=== PATIENT | male | born 1970 | race Caucasian/White ===

== ENCOUNTER 2017-12-29 10:09 | Observation (INO) ==
--- NOTE | 2017-12-29 11:07 | ED ---
HPI General Chief Complaint: Dizziness Stated Complaint: difficulty hearing out of rt ear Time Seen by Provider: 12/29/17 10:38 History of Present Illness HPI Narrative: Patient presents to the emergency department complaining of dizziness and decreased hearing in his right ear since Thursday night. States that on Thursday he started vomiting and had difficulty walking around the house. Also reporting some tinnitus and ear pressure. He was seen on Thursday morning at [facility] care and given a Z-Coleman and diagnosed with a ear infection. States that the dizziness worsened and he called him on Thursday and they gave her meclizine. Meclizine reportedly takes the edge off of the nausea but he still having dizziness. States that he is losing his balance and cannot walk or drive whenever he has to turn his head. He denies headache, fever, neck pain, rash, abdominal pain, chest pain, known sick contacts, but reports not being able to hear out of his right ear and vertigo where the room is spinning. patient states he hasn't eaten since yesterday and drank 2 cups of coffee this morning, one with a teaspoon of sugar and another without. Related Data Home Medications Medication Instructions Recorded Confirmed azithromycin [Zithromax Z-Coleman] 250 mg PO DAILY 12/29/17 12/29/17 meclizine 25 mg PO BID PRN 12/29/17 12/29/17 Allergies Allergy/AdvReac Type Severity Reaction Status Date / Time penicillin G Allergy Unknown Swelling Verified 12/29/17 10:27 Review of Systems ROS: all other systems reviewed are negative [facility] Medical History Medical History Patient denies medical problems (Acute) Surgical History Surgical History No history of previous surgery (Acute) Social History Social History Substance History: No History of Abuse Second Hand Smoke Exposure: No Smoking Status: Former smoker Tobacco Type: Cigarettes How Often Do You Have a Drink Containing Alcohol: 2 to 3 times a week Recent Travel in [facility] within the Last 8 Weeks: No Recent Out of Country Travel within the Last 8 Weeks: No Immunization History Tetanus Immunization: Unsure Exam Narrative Exam Narrative: GENERAL: No acute distress. SKIN: Focused skin assessment warm/dry. HEAD: Atraumatic. Normocephalic. EYES: Pupils equal and round. No scleral icterus. No injection or drainage. Intraocular muscles intact bilaterally. ENT: No nasal bleeding or discharge. Mucous membranes pink and moist. NECK: Trachea midline. No JVD. Patient can move his neck but as that increases the vertigo he likes to keep his neck still in midline. CARDIOVASCULAR: Regular rate and rhythm. No murmur appreciated. RESPIRATORY: No accessory muscle use. Clear to auscultation. Breath sounds equal bilaterally. GASTROINTESTINAL: Abdomen soft, non-tender, nondistended. Hepatic and splenic margins not palpable. MUSCULOSKELETAL: No obvious deformities. No clubbing. No cyanosis. No edema. NEUROLOGICAL: Awake and alert. No obvious cranial nerve deficits. Motor grossly within normal limits. Normal speech. 5 out of 5 strength bilateral upper and lower extremities. Tuning fork localizes to the left ear when the Buitrago test is performed. Rinne test is normal in L ear but he has no air or bone conduction in L ear. + Romberg's (swayed and lost his balance), normal finger to nose and heel to montelongo, can walk backwards, normal gait as long as he' s looking straight ahead. PSYCHIATRIC: Appropriate mood and affect; insight and judgment normal. Course Initial Documented Vital Signs Temperature 98.5 F 12/29/17 10:25 Pulse Rate 70 12/29/17 10:25 Respiratory Rate 16 12/29/17 10:25 Blood Pressure 188/95 H 12/29/17 10:25 Pulse Oximetry 98 12/29/17 10:25 Last Documented Vital Signs Temperature 98.5 F 12/29/17 10:25 Pulse Rate 60 12/29/17 13:39 Respiratory Rate 16 12/29/17 13:39 Blood Pressure 145/79 H 12/29/17 13:14 Pulse Oximetry 97 12/29/17 13:39 Medical Decision Making [facility] Narrative Medical decision making narrative: Patient presents to the emergency department complaining of dizziness and hearing loss in the right ear and vertigo and ear pressure and nausea and vomiting. Patient is slightly hypertensive on exam. IV access obtained, patient placed on a radiation monitor continuous pulse ox. Labs and chest x-ray and head CT ordered. 1220: 1L IV NS ordered. Neurology paged. Endocrine also paged. 2125: Spoke to Yumiko in Dr Lazaro's office, endocrine. Unable to get Hgb A1c as it hasn't been atleast 6 hrs since he's eaten/had the coffee. She advises that he would want that before possible starting him on meds. They will see him in the office tomorrow at 4:30PM. 1306: Discussed with Dr Marlow, advised to admit patient, get formal neuro consult and MRI/MRA brain with and without. Called rib trim separator office back and told them he jina be admitted and unable to make the appointment tomorrow. 1336: Admitted to hospitalist. Medical Screen Exam Complete: Yes Emergency Medical Condition: Yes Lab Data Result diagrams: 12/29/17 11:10 12/29/17 11:10 Lab Results 12/29/17 12/29/17 12/29/17 Range/Units 11:05 11:05 11:10 CBC w Diff Auto diff final WBC 7.2 (4.0-11.0) th/mm3 RBC 6.22 H (4.50-5.90) mil/mm3 Hgb 17.9 H (13.0-17.0) gm/dL Hct 53.6 H (39.0-51.0) % MCV 86.2 (80.0-100.0) fL MCH 28.8 (27.0-34.0) pg MCHC 33.4 (32.0-36.0) % RDW 11.7 (11.6-17.2) % Plt Count 260 (150-450) th/mm3 MPV 7.3 (7.0-11.0) fL Neut % (Auto) 62.7 (16.0-70.0) % Lymph % (Auto) 27.7 (9.0-44.0) % [place] % (Auto) 7.3 (0.0-8.0) % Eos % (Auto) 0.4 (0.0-4.0) % Baso % (Auto) 1.9 (0.0-2.0) % Neut # (Auto) 4.6 (1.8-7.7) th/mm3 Lymph # (Auto) 2.0 (1.0-4.8) th/mm3 [place] # (Auto) 0.5 (0.0-0.9) th/mm3 Eos # (Auto) 0.0 (0.0-0.4) th/mm3 Baso # (Auto) 0.1 (0.0-0.2) th/mm3 WBC Differential . Differential Comment . Sodium (136-145) meq/L Potassium (3.5-5.1) meq/L Chloride (98-107) meq/L Carbon Dioxide (21.0-32.0) meq/L Anion Gap (5-15) meq/L BUN (7-18) mg/dL Creatinine (0.60-1.30) mg/dL Estimated GFR (>89) mL/min Random Glucose (74-106) mg/dL Calcium (8.5-10.1) mg/dL Total Bilirubin (0.2-1.0) mg/dL AST (15-37) U/L ALT (12-78) U/L Alkaline Phosphatase (45-117) U/L Total Protein (6.4-8.2) g/dL Albumin (3.4-5.0) g/dL Ur Collection Type Clean catch Urine Color Yellow (Yellw/Straw) Urine Clarity Clear (Clear) Urine pH 5.5 (5.0-8.5) Ur Specific [place] 1.025 (1.002-1.035) Urine Protein Negative (Neg-Trace) mg/dL Urine Glucose (UA) 1000 or greater H (Negative) mg/dL Urine Ketones 80 or greater H (Negative) mg/dL Urine Occult Blood Negative (Negative) Urine Nitrate Negative (Negative) Urine Bilirubin Negative (Negative) Urine Urobilinogen 0.2 (Less than 2) mg/dL Ur Leukocyte Esterase Negative (Negative) Urine RBC 0-3 (0-3) /hpf Ur Squamous Epith Cells 0-5 (0-5) /hpf Micro UA Comment Culture not ind Ur Microscopic Review Microscopic reviewed Urine Culture Comments Culture not ind Urine Opiates Screen Neg (Neg) Ur Barbiturates Screen Neg (Neg) Ur Amphetamines Screen Neg (Neg) U Benzodiazepines Scrn Neg (Neg) Urine Cocaine Screen Neg (Neg) U Cannabinoids Screen Pos H (Neg) 12/29/17 Range/Units 11:10 CBC w Diff WBC (4.0-11.0) th/mm3 RBC (4.50-5.90) mil/mm3 Hgb (13.0-17.0) gm/dL Hct (39.0-51.0) % MCV (80.0-100.0) fL MCH (27.0-34.0) pg MCHC (32.0-36.0) % RDW (11.6-17.2) % Plt Count (150-450) th/mm3 MPV (7.0-11.0) fL Neut % (Auto) (16.0-70.0) % Lymph % (Auto) (9.0-44.0) % [place] % (Auto) (0.0-8.0) % Eos % (Auto) (0.0-4.0) % Baso % (Auto) (0.0-2.0) % Neut # (Auto) (1.8-7.7) th/mm3 Lymph # (Auto) (1.0-4.8) th/mm3 [place] # (Auto) (0.0-0.9) th/mm3 Eos # (Auto) (0.0-0.4) th/mm3 Baso # (Auto) (0.0-0.2) th/mm3 WBC Differential Differential Comment Sodium 137 (136-145) meq/L Potassium 4.0 (3.5-5.1) meq/L Chloride 104 (98-107) meq/L Carbon Dioxide 21.5 (21.0-32.0) meq/L Anion Gap 12 (5-15) meq/L BUN 16 (7-18) mg/dL Creatinine 0.76 (0.60-1.30) mg/dL Estimated GFR Greater than 89 (>89) mL/min Random Glucose 262 H (74-106) mg/dL Calcium 8.6 (8.5-10.1) mg/dL Total Bilirubin 0.6 (0.2-1.0) mg/dL AST 15 (15-37) U/L ALT 25 (12-78) U/L Alkaline Phosphatase 79 (45-117) U/L Total Protein 8.0 (6.4-8.2) g/dL Albumin 4.3 (3.4-5.0) g/dL Ur Collection Type Urine Color (Yellw/Straw) Urine Clarity (Clear) Urine pH (5.0-8.5) Ur Specific [place] (1.002-1.035) Urine Protein (Neg-Trace) mg/dL Urine Glucose (UA) (Negative) mg/dL Urine Ketones (Negative) mg/dL Urine Occult Blood (Negative) Urine Nitrate (Negative) Urine Bilirubin (Negative) Urine Urobilinogen (Less than 2) mg/dL Ur Leukocyte Esterase (Negative) Urine RBC (0-3) /hpf Ur Squamous Epith Cells (0-5) /hpf Micro UA Comment Ur Microscopic Review Urine Culture Comments Urine Opiates Screen (Neg) Ur Barbiturates Screen (Neg) Ur Amphetamines Screen (Neg) U Benzodiazepines Scrn (Neg) Urine Cocaine Screen (Neg) U Cannabinoids Screen (Neg) Imaging Data Radiologist's impression: Chest X-Ray 12/29/17 10:58 CONCLUSION: No acute cardiopulmonary disease. Head CT 12/29/17 10:58 CONCLUSION: 1. Negative noncontrast head CT. . ECG Data Attestation: I personally reviewed and interpreted this ECG as follows: (Sinus rhythm, rate 64, left axis deviation, normal intervals, QTC 412, TWI in II and V1) Discharge Plan Physicians Team ED Provider: Radha Perez Primary Care Provider: Primary Care Tennille Landon Rxs /Orders / Referrals /Forms Prescriptions: No Action azithromycin [Zithromax Z-Coleman] 250 mg Tablet 250 mg PO DAILY RF: 0 meclizine 25 mg Tablet 25 mg PO BID PRN (Reason: Dizziness Or Vertigo) RF: 0 Discharge Interventions Interventions: Vital Signs Last Done: 12/29/17 13:14 Status ED Status: Admitted Observation Patient
[2017-12-29 11:22] LABS: Bilirubin,Urine Negative (Negative); Clarity,Urine Clear (Clear); Color,Urine Yellow (Yellw/Straw); Leukocyte Esterase,Urine Negative (Negative); Nitrite,Urine Negative (Negative); PH,Urine 5.5 (5.0-8.5); Specific Gravity,Urine 1.025 (1.002-1.035); Urobilinogen,Urine 0.2 mg/dL (Less than 2)
[2017-12-29 11:23] LABS: Baso # (Auto) 0.1 th/mm3 (0.0-0.2); Baso % (Auto) 1.9 % (0.0-2.0); Eos % (Auto) 0.4 % (0.0-4.0); Hematocrit 53.6 % (39.0-51.0); Hemoglobin 17.9 gm/dL (13.0-17.0); Lymph % (Auto) 27.7 % (9.0-44.0); Mean Corpuscular HGB Conc 33.4 % (32.0-36.0); Mean Corpuscular Hemoglobin 28.8 pg (27.0-34.0); Mean Corpuscular Volume 86.2 fL (80.0-100.0); Mean Platelet Volume 7.3 fL (7.0-11.0); Mono # (Auto) 0.5 th/mm3 (0.0-0.9); Mono % (Auto) 7.3 % (0.0-8.0); Neut # (Auto) 4.6 th/mm3 (1.8-7.7); Neut % (Auto) 62.7 % (16.0-70.0); Platelet Count 260 th/mm3 (150-450); Red Blood Count 6.22 mil/mm3 (4.50-5.90); Red Cell Distribution Width 11.7 % (11.6-17.2); White Blood Count 7.2 th/mm3 (4.0-11.0)
--- NOTE | 2017-12-29 11:28 | XR ---
EXAM DATE: 12/29/2017 11:17 AM EST AGE/SEX: 47 years / Male INDICATIONS: Dizziness, unable to hear out of right ear. CLINICAL DATA: This is the patient's initial encounter. Patient reports that signs and symptoms have been present for 4 - 6 days and indicates a pain score of 0/10. MEDICAL/SURGICAL HISTORY: None. None. COMPARISON: No prior exams available for comparison. FINDINGS: The lungs are clear without infiltrate, nodule, or mass. There is no appreciable pleural effusion for technique. Heart and mediastinum are unremarkable. CONCLUSION: No acute cardiopulmonary disease. Electronically signed by: Karie Saini MD 12/29/2017 11:27 AM EST
[2017-12-29 11:29] LABS: Chloride 104 meq/L (98-107); Sodium 137 meq/L (136-145)
--- NOTE | 2017-12-29 11:29 | CT ---
EXAM DATE: 12/29/2017 11:26 AM EST AGE/SEX: 47 years / Male INDICATIONS: Dizziness with difficulty hearing out of right ear. CLINICAL DATA: This is the patient's initial encounter. Patient reports that signs and symptoms have been present for 4 - 6 days and indicates a pain score of 0/10. MEDICAL/SURGICAL HISTORY: None. None. RADIATION DOSE: 60.57 CTDI (mGy) COMPARISON: No prior exams available for comparison. TECHNIQUE: CT of the head without contrast. Using automated exposure control and adjustment of the mA and/or kV according to patient size, radiation dose was kept as low as reasonably achievable to ob tain optimal diagnostic quality images. DICOM format image data is available electronically for revi ew and comparison. FINDINGS: Cerebrum: The ventricles are normal for age. No evidence of midline shift, mass lesion, hemorrhage or acute infarction. No extraaxial fluid collections are seen. Posterior Fossa: The cerebellum and brainstem are intact. The 4th ventricle is midline. The cerebe llopontine angle is unremarkable. Extracranial: The visualized portion of the orbits is intact. Skull: The calvaria is intact. No evidence of skull fracture. CONCLUSION: 1. Negative noncontrast head CT. . Electronically signed by: Venancio Lorenzana MD 12/29/2017 11:27 AM EST
[2017-12-29 11:31] LABS: Amphetamine Screen,Urine Neg (Neg); Barbiturate Screen,Urine Neg (Neg); Cannabinoid Screen,Urine Pos (Neg); Cocaine Screen,Urine Neg (Neg); RBC,Urine 0-3 /hpf (0-3); Squamous Epithelial Cell,Urine 0-5 /hpf (0-5)
[2017-12-29 11:32] LABS: Calcium 8.6 mg/dL (8.5-10.1)
[2017-12-29 11:33] LABS: Albumin 4.3 g/dL (3.4-5.0); Anion Gap 12 meq/L (5-15); Blood Urea Nitrogen 16 mg/dL (7-18); Carbon Dioxide 21.5 meq/L (21.0-32.0); Glucose,Random 262 mg/dL (74-106)
[2017-12-29 11:35] LABS: Opiate Screen,Urine Neg (Neg)
[2017-12-29 11:36] LABS: Alanine Aminotransferase 25 U/L (12-78); Aspartate Aminotransferase 15 U/L (15-37); Glomerular Filtration Rate Greater Than 89 mL/min (>89)
[2017-12-29 11:39] LABS: Alkaline Phosphatase 79 U/L (45-117)
[2017-12-29] MEDS ORDERED: Sod Chloride 0.9% Inj 1,000 ML IV.SIG SCH (12:15)
[2017-12-29] MEDS ORDERED: Bisacodyl 10 MG Supp RECTAL PRN (13:34)
[2017-12-29] MEDS ORDERED: Dextrose 50% in Water 50 ML Vial IV.PUSH PRN (13:34)
[2017-12-29] MEDS: Sod Chloride 0.9% Inj 1,000 ML IV.CONT SCH (13:45)
[2017-12-29] MEDS ORDERED: Acetaminophen 325 MG Tablet PO PRN (14:41)
--- NOTE | 2017-12-29 14:46 | P.HP ---
History of Present Illness Primary Care Physician: No Primary Care Physician Chief Complaint: hearing loss, dizziness, unsteady gait History of Present Illness: 47-year-old male with no past medical history presents with right ear hearing loss and dizziness since Thursday night 12/25/17. Patient states he has recently been in his normal state of health, denies any recent fever/chills, headache, congestion, rhinitis, sore throat, cough, chest pain, shortness breath, or abdominal complaints. On 12/25/17 in the evening he started to notice decreased hearing of his right ear, and occasional dizziness. His symptoms persisted throughout the day on Tuesday 12/26, therefore he presented to an urgent care on 12/27. He was prescribed a Z-Coleman and diagnosed with an inner ear infection. He denies any pain in the right ear or any drainage from the ear. His symptoms persisted yesterday, with worsening dizziness and unsteady gait, in the urgent care, prescription for meclizine. He states meclizine took the edge off, but his hearing loss continues to worsen and he has been hardly able to walk therefore he presented to the ER today. He denies any prior similar episodes. He states his symptoms are worse with any movement, but if he is able to focus on something right in front of him, his dizziness improves. He has no other medical complaints at this time. Review of Systems All other systems reviewed negative except as stated in HPI PMFSH - History History Provided By: Patient - Medical / Surgical Hx Neg / Unobtainable Surgical History: No Previous Surgery - Medical History Medical History: Medical History (Last Reviewed 12/29/17 @ 15:15 by Payton Perez) Patient denies medical problems - Surgical History Surgical History: Surgical History (Last Reviewed 12/29/17 @ 15:15 by Payton Perez) No history of previous surgery - Family History Family History: Family History (Last Updated 12/29/17 @ 15:16 by Payton Perez) Grandparent Diabetes - Social History I have reviewed the patient's Social History: Yes - Tobacco History Second Hand Smoke Exposure: No Tobacco Use In Past 30 Days: No Smoking Status: Former smoker (Quit 15 years ago) Tobacco Type: Cigarettes - Alcohol History How Often Do You Have a Drink Containing Alcohol: 2 to 3 times a week - Substance Use History Substance History: No History of Abuse, Active Abuse - Substance Use Type Marijuana Status: Active (23 times per week) - Travel History Recent Travel in the [place] Within the Last 8 Weeks: No Recent Travel Out of the Country Within the Last 8 Weeks: No - Immunization History Tetanus Immunization: Unsure Medications and Allergies Active Medications: Active Medications Al Hydroxide/Mg Hydroxide (Milk Of Magnesia Liq) 30 ml PO Q12H PRN PRN Reason: Mild Constipation Bisacodyl (Dulcolax Supp) 10 mg RECTAL DAILY PRN PRN Reason: SEVERE CONSITIPATION Dextrose (D50w Vial) 50 ml IV.PUSH UNSCH PRN PRN Reason: PER HYPOGLYCEMIA PROTOCOL Glucagon (Glucagon Inj) 1 mg OTHER PRN PRN PRN Reason: for Hypoglycemia Protocol Sodium Chloride (Ns Inj) 1,000 mls @ 84 mls/hr IV.CONT .[id number] [facility] Last Admin: 12/29/17 13:45 Dose: 84 mls/hr Lactulose (Lactulose Liq) 30 ml PO DAILY PRN PRN Reason: SEVERE CONSITIPATION Senna/Docusate Sodium ([place]-Colace) 1 tab PO BID [facility] Sennosides (Senokot) 17.2 mg PO Q12H PRN PRN Reason: Moderate Constipation Allergies Allergy/AdvReac Type Severity Reaction Status Date / Time penicillin G Allergy Unknown Swelling Verified 12/29/17 10:27 Home Medications Medication Instructions Recorded Confirmed Type azithromycin [Zithromax Z-Coleman] 250 mg PO DAILY 12/29/17 12/29/17 History meclizine 25 mg PO BID PRN 12/29/17 12/29/17 History Exam Vital signs: Vital Signs 12/29/17 10:25 12/29/17 13:14 12/29/17 13:39 Temperature 98.5 F Pulse Rate 70 69 60 Respiratory Rate 16 18 16 Blood Pressure 188/95 H 145/79 H Pulse Oximetry 98 98 97 Intake & Output 12/28/17 12/29/17 12/29/17 18:59 06:59 18:59 Intake Total 1000 / 1000 Balance 1000 / 1000 Weight 77.6 kg Intake: IV 1000 / 1000 NS Inj 1,000 ML @ 1000 mls/hr 1000 / 1000 IV.SIG BOLUS EDDIE Rx#:[id number] Narrative: GENERAL: Well-nourished, well-developed middle-age male patient in NAD. SKIN: Warm and dry. No rash. HEENT: Normocephalic. Atraumatic. Pupils equal and round. EOMI. No obvious nystagmus. Bilateral external ear canals clear without any erythema/drainage; bilateral TMs clear with positive cone of light, no TM bulging or air-fluid levels. No pain upon manipulation of the auricle. No mastoid tenderness. Significantly decreased hearing of the right ear compared to left. Posterior oropharynx clear without any tonsillar edema/exudate. NECK: Supple. Trachea midline. CARDIOVASCULAR: Regular rate and rhythm. No murmur appreciated. RESPIRATORY: No accessory muscle use. Clear to auscultation. Breath sounds equal bilaterally. GASTROINTESTINAL: Abdomen soft, non-tender, nondistended. Normoactive bowel sounds x4. MUSCULOSKELETAL: No obvious deformities. Extremities without clubbing, cyanosis , or edema. NEUROLOGICAL: Awake and alert. No obvious cranial nerve deficits. Motor grossly within normal limits. 5/5 strength in bilateral upper extremities. Normal speech. PSYCHIATRIC: Appropriate mood and affect; insight and judgment normal. Results - Labs CBC & Chem 7: 12/29/17 11:10 12/29/17 11:10 Labs: Laboratory Results - last 24 hr 12/29/17 12/29/17 12/29/17 11:05 11:05 11:10 CBC w Diff Auto diff final WBC 7.2 RBC 6.22 H Hgb 17.9 H Hct 53.6 H MCV 86.2 MCH 28.8 MCHC 33.4 RDW 11.7 Plt Count 260 MPV 7.3 Neut % (Auto) 62.7 Lymph % (Auto) 27.7 [place] % (Auto) 7.3 Eos % (Auto) 0.4 Baso % (Auto) 1.9 Neut # (Auto) 4.6 Lymph # (Auto) 2.0 [place] # (Auto) 0.5 Eos # (Auto) 0.0 Baso # (Auto) 0.1 WBC Differential . Differential Comment . Sodium Potassium Chloride Carbon Dioxide Anion Gap BUN Creatinine Estimated GFR Random Glucose Calcium Total Bilirubin AST ALT Alkaline Phosphatase Total Protein Albumin Ur Collection Type Clean catch Urine Color Yellow Urine Clarity Clear Urine pH 5.5 Ur Specific [place] 1.025 Urine Protein Negative Urine Glucose (UA) 1000 or greater H Urine Ketones 80 or greater H Urine Occult Blood Negative Urine Nitrate Negative Urine Bilirubin Negative Urine Urobilinogen 0.2 Ur Leukocyte Esterase Negative Urine RBC 0-3 Ur Squamous Epith Cells 0-5 Micro UA Comment Culture not ind Ur Microscopic Review Microscopic reviewed Urine Culture Comments Culture not ind Urine Opiates Screen Neg Ur Barbiturates Screen Neg Ur Amphetamines Screen Neg U Benzodiazepines Scrn Neg Urine Cocaine Screen Neg U Cannabinoids Screen Pos H 12/29/17 11:10 CBC w Diff WBC RBC Hgb Hct MCV MCH MCHC RDW Plt Count MPV Neut % (Auto) Lymph % (Auto) [place] % (Auto) Eos % (Auto) Baso % (Auto) Neut # (Auto) Lymph # (Auto) [place] # (Auto) Eos # (Auto) Baso # (Auto) WBC Differential Differential Comment Sodium 137 Potassium 4.0 Chloride 104 Carbon Dioxide 21.5 Anion Gap 12 BUN 16 Creatinine 0.76 Estimated GFR Greater than 89 Random Glucose 262 H Calcium 8.6 Total Bilirubin 0.6 AST 15 ALT 25 Alkaline Phosphatase 79 Total Protein 8.0 Albumin 4.3 Ur Collection Type Urine Color Urine Clarity Urine pH Ur Specific [place] Urine Protein Urine Glucose (UA) Urine Ketones Urine Occult Blood Urine Nitrate Urine Bilirubin Urine Urobilinogen Ur Leukocyte Esterase Urine RBC Ur Squamous Epith Cells Micro UA Comment Ur Microscopic Review Urine Culture Comments Urine Opiates Screen Ur Barbiturates Screen Ur Amphetamines Screen U Benzodiazepines Scrn Urine Cocaine Screen U Cannabinoids Screen - Imaging Impressions Chest X-Ray 12/29/17 10:58 CONCLUSION: No acute cardiopulmonary disease. Head CT 12/29/17 10:58 CONCLUSION: 1. Negative noncontrast head CT. . Caprini VTE Risk Assessment Caprini VTE Risk Assessment: No/Low Risk (score <= 1) Caprini Risk Assessment Model: Point Value = 1 Point Value = 2 Point Value = 3 Point Value = 5 Age 41-60 Minor surgery BMI > 25 kg/m2 Swollen legs Varicose veins or History of unexplained or recurrent spontaneous Oral contraceptives or hormone replacement Sepsis (< 1 month) Serious lung disease, including pneumonia (< 1 month) Abnormal pulmonary function Acute myocardial infarction Congestive heart failure (< 1 month) History of inflammatory bowel disease Medical patient at bed rest Age 61-74 Arthroscopic surgery Major open surgery (> 45 min) Laparoscopic surgery (> 45 min) Malignancy Confined to bed (> 72 hours) Immobilizing plaster cast Central venous access Age >= 75 History of VTE Family history of VTE Factor V Leiden Prothrombin [id number] Lupus anticoagulant Anticardiolipin antibodies Elevated serum homocysteine Heparin-induced thrombocytopenia Other congenital or acquired thrombophilia Stroke (< 1 month) Elective arthroplasty Hip, pelvis, or leg fracture Acute spinal cord injury (< 1 month) Prophylaxis Regimen: Total Risk Factor Score Risk Level Prophylaxis Regimen 0-1 Low Early ambulation 2 Moderate Order ONE of the following: *Sequential Compression Device (SCD) *Heparin 5000 units SQ BID 3-4 Higher Order ONE of the following medications: *Heparin 5000 units SQ TID *Enoxaparin/Lovenox 40 mg SQ daily (WT < 150 kg, CrCl > 30 mL/min) *Enoxaparin/Lovenox 30 mg SQ daily (WT < 150 kg, CrCl > 10-29 mL/min) *Enoxaparin/Lovenox 30 mg SQ BID (WT < 150 kg, CrCl > 30 mL/min) AND/OR *Sequential Compression Device (SCD) 5 or more Highest Order ONE of the following medications: *Heparin 5000 units SQ TID (Preferred with Epidurals) *Enoxaparin/Lovenox 40 mg SQ daily (WT < 150 kg, CrCl > 30 mL/min) *Enoxaparin/Lovenox 30 mg SQ daily (WT < 150 kg, CrCl > 10-29 mL/min) *Enoxaparin/Lovenox 30 mg SQ BID (WT < 150 kg, CrCl > 30 mL/min) AND *Sequential Compression Device (SCD) Assessment and Plan - Plan 47-year-old male with no past medical history presents with right ear hearing loss and dizziness since Thursday night 12/25/17. Right ear hearing loss/dizziness: Unclear etiology, possibly vertigo versus Mnire's versus TIA/CVA. -Head CT reviewed, no acute findings -Check brain MRI and head MRA -Give IVF hydration -Meclizine prn, IV Ativan prn -Consult PT -Consult neurology Elevated blood glucose: BG 262. No hx of diabetes. No recent steroids. -UA with >1000 glucose and 80 ketones -check HgbA1c -monitor Accu-checks and cover with SSI DVT Prophylaxis: teds/SCDs
--- NOTE | 2017-12-29 15:36 | P.CONNEU ---
History of Present Illness Service: Neurology Primary Care Provider: No Primary Care Physician Chief Complaint: hearing loss, dizziness, unsteady gait History of Present Illness: 37-year-old male admitted for symptoms of vertigo, tinnitus hearing loss. Symptoms began acutely this past Thursday. Spinning sensation when he moves his head side to side no problems when staying still. No recent head or neck trauma. Seen by an outside physician felt to have a right ear infection and prescribed antibiotics. Take it for a couple days did not feel any improvement so he came in for further evaluation. Denies any headache neck pain focal weakness vision loss sensory symptoms. Elevated gait imbalance associated with spinning sensation when she is able to compensate on. Denies any history of autoimmune disease lupus or Sjogren's. Noted to have elevated blood sugars and blood in urine. Review of Systems All other systems reviewed negative except as stated in HPI [facility] - History History Provided By: Patient - Medical History Medical History: Medical History (Last Reviewed 12/29/17 @ 15:15 by Payton Perez) Patient denies medical problems - Surgical History Surgical History: Surgical History (Last Reviewed 12/29/17 @ 15:15 by Payton Perez) No history of previous surgery - Family History Family History: Family History (Last Updated 12/29/17 @ 15:16 by Payton Perez) Grandparent Diabetes - Tobacco History Second Hand Smoke Exposure: No Tobacco Use In Past 30 Days: No Smoking Status: Former smoker (Quit 15 years ago) Tobacco Type: Cigarettes - Alcohol History How Often Do You Have a Drink Containing Alcohol: 2 to 3 times a week - Substance Use History Substance History: No History of Abuse, Active Abuse - Substance Use Type Marijuana Status: Active (23 times per week) - Travel History Recent Travel in the [place] Within the Last 8 Weeks: No Recent Travel Out of the Country Within the Last 8 Weeks: No - Immunization History Tetanus Immunization: Unsure Medications and Allergies Active Medications: Active Medications Acetaminophen (Tylenol) 650 mg PO Q4H PRN PRN Reason: headache/fever/pain1-4 Al Hydroxide/Mg Hydroxide (Milk Of Magnesia Liq) 30 ml PO Q12H PRN PRN Reason: Mild Constipation Bisacodyl (Dulcolax Supp) 10 mg RECTAL DAILY PRN PRN Reason: SEVERE CONSITIPATION Dextrose (D50w Vial) 50 ml IV.PUSH UNSCH PRN PRN Reason: PER HYPOGLYCEMIA PROTOCOL Glucagon (Glucagon Inj) 1 mg OTHER PRN PRN PRN Reason: for Hypoglycemia Protocol Sodium Chloride (Ns Inj) 1,000 mls @ 84 mls/hr IV.CONT .[id number] [facility] Last Admin: 12/29/17 13:45 Dose: 84 mls/hr Insulin Aspart (Novolog Insulin Correctional Sugar Inj) 0 unit SQ ACHS EDDIE; Protocol Lactulose (Lactulose Liq) 30 ml PO DAILY PRN PRN Reason: SEVERE CONSITIPATION Lorazepam (Ativan Inj) 0.5 mg IV.PUSH Q6H PRN PRN Reason: severe intractable dizziness Meclizine HCl (Antivert) 25 mg PO Q8HR PRN PRN Reason: DIZZINESS Senna/Docusate Sodium ([place]-Colace) 1 tab PO BID EDDIE Sennosides (Senokot) 17.2 mg PO Q12H PRN PRN Reason: Moderate Constipation Allergies Allergy/AdvReac Type Severity Reaction Status Date / Time penicillin G Allergy Unknown Swelling Verified 12/29/17 10:27 Home Medications Medication Instructions Recorded Confirmed Type azithromycin [Zithromax Z-Coleman] 250 mg PO DAILY 12/29/17 12/29/17 History meclizine 25 mg PO BID PRN 12/29/17 12/29/17 History Exam Vital signs: Vital Signs 12/29/17 10:25 12/29/17 13:14 12/29/17 13:39 Temperature 98.5 F Pulse Rate 70 69 60 Respiratory Rate 16 18 16 Blood Pressure 188/95 H 145/79 H Pulse Oximetry 98 98 97 Intake & Output 12/28/17 12/29/17 12/29/17 18:59 06:59 18:59 Intake Total 1000 / 1000 Balance 1000 / 1000 Weight 77.6 kg Intake: IV 1000 / 1000 NS Inj 1,000 ML @ 1000 mls/hr 1000 / 1000 IV.SIG BOLUS [facility] Rx#:[id number] Narrative: GENERAL: in NAD, SKIN: Warm and dry. HEAD: Atraumatic. Normocephalic. EYES: Pupils equal and round. No scleral icterus. ENT: No nasal bleeding or discharge. Mucous membranes pink and moist. NECK: Trachea midline. No JVD. CARDIOVASCULAR: Regular rate and rhythm. RESPIRATORY: No accessory muscle use. GASTROINTESTINAL: Abdomen soft, non-tender, nondistended. MUSCULOSKELETAL: Extremities without clubbing, cyanosis, or edema. No obvious deformities. NEUROLOGICAL: Awake and alert. Oriented x3 no aphasia, fluent articulate, positive head thrust test to the right, no facial asymmetry, OU 3-2mm, eomi, VFF , No drift, Motor grossly within normal limits. Five out of 5 muscle strength in the arms and legs. Tone normal in all 4 limbs, Sensory normal in all 4 extremities to pin, msr 1-2+ sym, no clonus, planterflexor, PSYCHIATRIC: Appropriate mood and affect; insight and judgment normal. - Constitutional no acute distress - Routine HEENT Exam Head: Present: normocephalic Eye: Present: EOMI Results - Labs CBC & Chem 7: 12/29/17 11:10 12/29/17 11:10 Labs: Laboratory Results - last 24 hr 12/29/17 12/29/17 12/29/17 11:05 11:05 11:10 CBC w Diff Auto diff final WBC 7.2 RBC 6.22 H Hgb 17.9 H Hct 53.6 H MCV 86.2 MCH 28.8 MCHC 33.4 RDW 11.7 Plt Count 260 MPV 7.3 Neut % (Auto) 62.7 Lymph % (Auto) 27.7 Swain % (Auto) 7.3 Eos % (Auto) 0.4 Baso % (Auto) 1.9 Neut # (Auto) 4.6 Lymph # (Auto) 2.0 Swain # (Auto) 0.5 Eos # (Auto) 0.0 Baso # (Auto) 0.1 WBC Differential . Differential Comment . Sodium Potassium Chloride Carbon Dioxide Anion Gap BUN Creatinine Estimated GFR Random Glucose Calcium Total Bilirubin AST ALT Alkaline Phosphatase Total Protein Albumin Ur Collection Type Clean catch Urine Color Yellow Urine Clarity Clear Urine pH 5.5 Ur Specific [place] 1.025 Urine Protein Negative Urine Glucose (UA) 1000 or greater H Urine Ketones 80 or greater H Urine Occult Blood Negative Urine Nitrate Negative Urine Bilirubin Negative Urine Urobilinogen 0.2 Ur Leukocyte Esterase Negative Urine RBC 0-3 Ur Squamous Epith Cells 0-5 Micro UA Comment Culture not ind Ur Microscopic Review Microscopic reviewed Urine Culture Comments Culture not ind Urine Opiates Screen Neg Ur Barbiturates Screen Neg Ur Amphetamines Screen Neg U Benzodiazepines Scrn Neg Urine Cocaine Screen Neg U Cannabinoids Screen Pos H 12/29/17 11:10 CBC w Diff WBC RBC Hgb Hct MCV MCH MCHC RDW Plt Count MPV Neut % (Auto) Lymph % (Auto) Swain % (Auto) Eos % (Auto) Baso % (Auto) Neut # (Auto) Lymph # (Auto) Swain # (Auto) Eos # (Auto) Baso # (Auto) WBC Differential Differential Comment Sodium 137 Potassium 4.0 Chloride 104 Carbon Dioxide 21.5 Anion Gap 12 BUN 16 Creatinine 0.76 Estimated GFR Greater than 89 Random Glucose 262 H Calcium 8.6 Total Bilirubin 0.6 AST 15 ALT 25 Alkaline Phosphatase 79 Total Protein 8.0 Albumin 4.3 Ur Collection Type Urine Color Urine Clarity Urine pH Ur Specific [place] Urine Protein Urine Glucose (UA) Urine Ketones Urine Occult Blood Urine Nitrate Urine Bilirubin Urine Urobilinogen Ur Leukocyte Esterase Urine RBC Ur Squamous Epith Cells Micro UA Comment Ur Microscopic Review Urine Culture Comments Urine Opiates Screen Ur Barbiturates Screen Ur Amphetamines Screen U Benzodiazepines Scrn Urine Cocaine Screen U Cannabinoids Screen - Imaging Impressions Chest X-Ray 12/29/17 10:58 CONCLUSION: No acute cardiopulmonary disease. Head CT 12/29/17 10:58 CONCLUSION: 1. Negative noncontrast head CT. . Review/Management - Diagnosis (1) Labyrinthine vestibulitis Code(s): H83.09 - Labyrinthitis, unspecified ear Status: Acute Current Visit : Yes (2) Vertigo Code(s): R42 - Dizziness and giddiness Status: Acute Current Visit: Yes - Review/Management Plan: Positive head thrust test to the right with with delayed gaze latency and right rotatory nystagmus. Possible acute labyrinthine vestibulitis affecting the cochlear complex and semicircular canals versus vestibular cochlear neuritis Acute labyrinthine artery stroke is a possibility although felt to be lesser likely based on his young age and lack of risk factors MRI/MRA brain negative Recommendations ENT evaluation Check ESR CRP Check HbA1c Meclizine as needed Consider trial of Medrol Dosepak Can follow-up with us as needed outpatient
--- NOTE | 2017-12-29 16:58 | MR ---
EXAM DATE: 12/29/2017 4:39 PM EST AGE/SEX: 47 years / Male INDICATIONS: CVA. Loss of hearing in right ear. Dizzy. CLINICAL DATA: This is the patient's initial encounter. Patient reports that signs and symptoms have been present for 1 day and indicates a pain score of 0/10. MEDICAL/SURGICAL HISTORY: None. . broken arm repair COMPARISON: [facility], CT HEAD W/O CONTRAST, 12/29/2017. . TECHNIQUE: Multiplanar, multisequence examination of the brain was performed without contrast. FINDINGS: Cerebrum: The ventricles are normal for age. No evidence of midline shift, mass lesion, hemorrhage or acute infarction. No extraaxial fluid collections are seen. The pituitary gland and suprasellar cistern are normal in configuration. White Matter: No significant signal abnormalities are seen in the white matter. Posterior Fossa: The cerebellum and brainstem are intact. The 4th ventricle is midline. The cerebel lopontine angle is unremarkable. The cerebellar tonsils are normal in position. Diffusion Imaging: No focal areas of restricted diffusion are seen. No evidence of acute infarction . Extracranial: The visualized portions of the orbits and paranasal sinuses are unremarkable. CONCLUSION: 1. Negative MRI study with no evidence of acute infarction or hemorrhage. Electronically signed by: Venancio Lorenzana MD 12/29/2017 4:56 PM EST
--- NOTE | 2017-12-29 16:59 | MR ---
EXAM DATE: 12/29/2017 4:54 PM EST AGE/SEX: 47 years / Male INDICATIONS: CVA. Loss of hearing in right ear. Dizzy. CLINICAL DATA: This is the patient's initial encounter. Patient reports that signs and symptoms have been present for 1 day and indicates a pain score of 0/10. MEDICAL/SURGICAL HISTORY: None. . broken arm repair COMPARISON: No prior exams available for comparison. TECHNIQUE: 3D [id number] MRA was performed. Source images, multiplanar STS MIP, and 3D volum e MIP reconstructions were reviewed. FINDINGS: There is excellent visualization of the major intracranial arteries out to the second-order branch ve ssels. There is no evidence for aneurysm, vessel truncation or stenosis, and no evidence for vascula r malformation. There are bilateral patent posterior communicating arteries. CONCLUSION: 1. Unremarkable MRA of the brain. Electronically signed by: Bharath Aviles MD 12/29/2017 4:57 PM EST
[2017-12-29] MEDS: Insulin NovoLOG Aspart Correctional Sugar Inj SQ SCH ×2 (18:20→21:41)
[2017-12-29 18:24] LABS: C-Reactive Protein 0.52 mg/dL (0.00-0.30)
[2017-12-29 18:34] LABS: Thyroid Stimulating Hormone 2.12 uIU/mL (0.358-3.740)
[2017-12-29 20:16] LABS: Hemoglobin A1c 10.8 % (4.3-6.0)
[2017-12-29 21:15] VITALS: RESP 20
[2017-12-29] MEDS: Senna/Docusate Sodium 8.6/50 MG Tablet PO SCH (21:35)
[2017-12-30] MEDS: Sod Chloride 0.9% Inj 1,000 ML IV.CONT SCH (02:57)
[2017-12-30] MEDS: Insulin NovoLOG Aspart Correctional Sugar Inj SQ SCH ×2 (08:31→12:00)
[2017-12-30] MEDS: Senna/Docusate Sodium 8.6/50 MG Tablet PO SCH (08:31)
--- NOTE | 2017-12-30 13:11 | P.PN ---
Subjective Interval history: Follow-up for hearing loss, dizziness, uncontrolled diabetes mellitus. Patient is currently doing well. However he is upset that ENT doctor did not come to see him. ENT was consulted by neurology yesterday. Patient denies any chest pain, shortness of breath, fever or chills. Physical Exam Vital signs: Vital Signs 12/29/17 13:14 12/29/17 13:39 12/29/17 18:24 Temperature 97.0 F L Pulse Rate 69 60 69 Respiratory Rate 18 16 16 Blood Pressure 145/79 H 158/85 H Pulse Oximetry 98 97 100 12/29/17 20:00 12/30/17 00:00 12/30/17 04:00 Temperature 97.2 F L 97.3 F L 97.6 F Pulse Rate 74 50 L 64 Respiratory Rate 20 20 20 Blood Pressure 149/79 H 141/67 H 78/78 L Pulse Oximetry 97 98 99 12/30/17 04:15 12/30/17 08:00 Temperature 97.4 F L Pulse Rate 47 L 62 Respiratory Rate 20 Blood Pressure 152/88 H Pulse Oximetry Intake & Output 12/29/17 12/30/17 12/30/17 18:59 06:59 18:59 Intake Total 1700 / 1700 1280 / 1280 Balance 1700 / 1700 1280 / 1280 Weight 77.6 kg 75.9 kg Intake: IV 1200 / 1200 800 / 800 NS Inj 1,000 ML @ 84 mls/hr IV. 200 / 200 800 / 800 CONT .[id number] EDDIE Rx#: [id number] NS Inj 1,000 ML @ 1000 mls/hr 1000 / 1000 IV.SIG BOLUS EDDIE Rx#:[id number] Oral 500 / 500 480 / 480 Other: # Voids 1 Narrative: GENERAL: Alert, oriented x3, NAD. SKIN: Warm and dry. HEAD: Normocephalic. EYES: No scleral icterus. No injection or drainage. NECK: Supple, trachea midline. No JVD or lymphadenopathy. CARDIOVASCULAR: Regular rate and rhythm without murmurs, gallops, or rubs. RESPIRATORY: Breath sounds equal bilaterally. No accessory muscle use. GASTROINTESTINAL: Abdomen soft, non-tender, nondistended. MUSCULOSKELETAL: No cyanosis, or edema. BACK: Nontender without obvious deformity. No CVA tenderness. Results - Labs CBC & Chem 7: 12/29/17 11:10 12/29/17 11:10 Laboratory Results - last 24 hr 12/29/17 12/29/17 12/29/17 11:10 11:10 17:01 ESR POC Glucose 173 H Hemoglobin A1c 10.8 H C-Reactive Protein 0.52 H TSH 2.120 12/29/17 12/29/17 12/30/17 20:32 21:37 08:00 ESR 3 POC Glucose 258 H 201 H Hemoglobin A1c C-Reactive Protein TSH 12/30/17 11:19 ESR POC Glucose 237 H Hemoglobin A1c C-Reactive Protein TSH - Imaging Impressions Head MRI 12/29/17 00:00 CONCLUSION: 1. Negative MRI study with no evidence of acute infarction or hemorrhage. Head MRA 12/29/17 00:00 CONCLUSION: 1. Unremarkable MRA of the brain. Assessment and Plan - Assessment (1) Diabetes mellitus Code(s): E11.9 - Type 2 diabetes mellitus without complications Status: Acute (2) Hearing loss Code(s): H91.90 - Unspecified hearing loss, unspecified ear Status: Acute - Plan 47-year-old male with no past medical history presents with right ear hearing loss and dizziness since Thursday night 12/25/17. Right ear hearing loss/dizziness: Unclear etiology, possibly vertigo versus Mnire's versus TIA/CVA. -Head CT reviewed, no acute findings -brain MRI and head MRA - unremarkable for any acute findings. -Given IVF hydration -Meclizine prn, IV Ativan prn -Consult PT -Neurology was consulted. Neurology recommended ENT evaluation. However ENT recommended outpatient follow-up in the office tomorrow. -I explained to the patient that ENT office evaluation would be better because they would have better equipments. However patient remains upset Diabetes mellitus HbA1C 10.8. -Patient admitted that he has been told he has diabetes before. He even has seen one of the food dehydrator operator in town. -Unfortunately patient did not follow the food dehydrator operator recommendations. He does not take any medications for diabetes mellitus at home. -We discussed at length regarding diabetes and complications it may have different systems including cardiac, ophthalmology, renal complications. -Patient is going to see [place] [facility] within the next 24 hours or so. I offered him insulin versus oral medications. -Patient stated that he will wait for the food dehydrator operator to make recommendations and then he will start taking medications. -No diabetic medications were prescribed for this reason. DVT Prophylaxis: teds/SCDs Discharge patient to home Condition on discharge: Improved Regular Diet as tolerated Ad Stacia activity Rx written: No new medications Follow-up with primary care physician as needed. Follow-up with endocrinology as well as ENT.
[2017-12-30 14:34] VITALS: BP 145/80; PULSE 67; TEMP 97; O2SAT 94
--- NOTE | 2017-12-30 19:56 | ECG ---
Date Performed: 12/29/2017 Time Performed: 13:39:57 PTAGE: 47 years EKG: Sinus rhythm NORMAL ECG NO PREVIOUS TRACING DOCTOR: Saturnino Pollock Interpretating Date/Time 12/30/2017 19:55:10
== END 2017-12-30 14:50 | disposition home or self-care (01) ==
LOC: PHEDA 10:09 → PHED 10:09 → PH3 16:56
PROVIDERS: ADMIT Hospitalist; ATTEND Hospitalist